=== PATIENT | female | born 1990 | race Caucasian/White ===

== ENCOUNTER 2019-05-22 18:00 | Emergency (ER) | payer SELFPAY ==
[2019-05-22 19:00] LABS: Bacteria/HPF None Seen HPF (None Seen); Bilirubin Negative (Negative); Blood, Urine Negative (Negative); Clarity Clear (Clear); Glucose, Urine (Dipstick) Normal (Negative); Leukocyte 25 Leu/uL (Negative); Nitrite Negative (Negative); Pregnancy Test - Urine (BHCG) Negative (Negative); Pregu Control Background? CLEAR/WHITE (CLR/WHITE); Pregu Control Bar Appear? YES (CONTROL BAR); Protein, Urine (Dipstick) 20 mg/dL (Neg-Trace); RBC/HPF 0-3 HPF (0-3); Specific Gravity 1.034 (1.002-1.036); WBC/HPF 0-3 HPF (0-3)
[2019-05-22] MEDS ORDERED: Metoclopramide 10 MG/10 ML UDCUP ONE (20:37)
[2019-05-22] MEDS ORDERED: Ketorolac Tromethamine 30 MG/ML VIAL ONE (20:37)
[2019-05-22] MEDS ORDERED: Metoclopramide HCl 10 MG/2 ML VIAL ONE (20:38)
== END 2019-05-22 22:00 | disposition home or self-care (01) ==
LOC: ERS 18:00
DX: G43.909 Migraine, unspecified, not intractable, without status migrainosus (principal); F41.9 Anxiety disorder, unspecified; F17.290 Nicotine dependence, other tobacco product, uncomplicated
CPT/HCPCS: 81003; 81015; 81025; 96365; 96375; J1885; J2765